=== PATIENT | male | born 1995 | race Caucasian/White ===

== ENCOUNTER 2018-10-09 07:16 | Inpatient (IN) | payer OTHER ==
[2018-10-09] VITALS (16 sets, daily range): BP systolic 105–134; BP diastolic 59–76
[~2018-10-09] VITALS: Ht 177.8 cm; Wt 72.1 kg
[~2018-10-09 07:16] MED LIST: CIPRO500 MG PO; HUMALOG100 UNIT/2 SQ; HYDROCODONE-AP1 EAC6 PO; NORCO 5-325 TA1 EACH PO; ZOFRAN ODT4 MG PO; ZOFRAN ODT4 MG SUBLING
[2018-10-09 07:39] LABS: BE -11.9 mmol/L (-2 to +3); PCO2 VENOUS 30.7 mmHg (41.0-51.0); PO2 VENOUS 60.9 mmHg (35.0-45.0)
[2018-10-09 07:46] LABS: ABSOLUTE BASOPHILS 0.1 thou/uL (0.0-0.2); ABSOLUTE LYMPHOCYTES 1.9 thou/uL (0.8-5.3); ABSOLUTE MONOCYTES 0.5 thou/uL (0.0-1.2); ABSOLUTE NEUTROPHILS 13.6 thou/uL (1.6-8.1); BASOPHILS 0.4 %; EOSINOPHILS 0.1 %; HEMOGLOBIN 15.6 gm/dL (14.0-18.0); LYMPHOCYTES 12.1 %; MCH 28.1 pg (26.0-34.0); MCHC 31.9 g/dL (28.0-37.0); MCV 88.2 fL (80.0-100.0); MONOCYTES 2.9 %; MPV 9.3 fl. (7.2-11.1); NUCLEATED RBCS 0 /100WBC; PLATELET COUNT* 387 thou/uL (150-400); POLYS 84.5 %; RBC 5.55 mil/uL (4.50-6.00); RDW-CV 14.2 % (10.5-14.5); WBC 16.1 thou/uL (4.0-11.0)
[2018-10-09 07:53] LABS: CALCIUM 9.6 mg/dL (8.5-10.1); CREATININE 1.4 mg/dL (0.6-1.3); POTASSIUM 4.3 mmol/L (3.5-5.1)
[2018-10-09 07:55] LABS: ALBUMIN 4.7 g/dL (3.4-5.0); TOTAL BILIRUBIN 1.1 mg/dL (<0.1-1.0); TOTAL PROTEIN 8.3 g/dL (6.4-8.2)
[2018-10-09 08:58] LABS: URINE BILIRUBIN NEGATIVE (Negative); URINE BLOOD NEGATIVE (Negative); URINE CLARITY CLEAR; URINE COLOR YELLOW; URINE GLUCOSE-RANDOM 2+ (Negative); URINE KETONES 2+ (Negative); URINE LEUKOCYTES-REFLEX NEGATIVE (Negative); URINE NITRITE-REFLEX NEGATIVE (Negative); URINE PROTEIN NEGATIVE (Negative); URINE UROBILINOGEN 0.2 E.U./dl (0.2-1.0)
[2018-10-09 10:19] LABS: ALBUMIN 4.7 g/dL (3.4-5.0); CALCIUM 9.9 mg/dL (8.5-10.1); CREATININE 1.4 mg/dL (0.6-1.3); POTASSIUM 4.2 mmol/L (3.5-5.1)
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
[2018-10-09 13:59] LABS: ALBUMIN 3.8 g/dL (3.4-5.0); CALCIUM 8.4 mg/dL (8.5-10.1); PHOSPHORUS* 3.9 mg/dL (2.5-4.9); POTASSIUM 5.1 mmol/L (3.5-5.1)
[2018-10-09 17:43] LABS: ALBUMIN 3.6 g/dL (3.4-5.0); CALCIUM 8.6 mg/dL (8.5-10.1); CREATININE 0.9 mg/dL (0.6-1.3); MAGNESIUM 2.1 mg/dL (1.8-2.4); PHOSPHORUS* 3.9 mg/dL (2.5-4.9); POTASSIUM 4.3 mmol/L (3.5-5.1)
--- NOTE | 2018-10-09 18:00 | NUR ---
PT REPORTS FEELING BETTER. BLOOD GLUCOSE LEVELS CHECKED Q 1 HOUR. VSS. AFEBRILE. PT VOIDING PER URINAL. PT TOLERATING LIQUID DIET.
[2018-10-09 21:39] LABS: ALBUMIN 3.3 g/dL (3.4-5.0); CALCIUM 8.2 mg/dL (8.5-10.1); CREATININE 0.8 mg/dL (0.6-1.3); MAGNESIUM 1.7 mg/dL (1.8-2.4); POTASSIUM 3.8 mmol/L (3.5-5.1)
[2018-10-10] VITALS (15 sets, daily range): BP systolic 78–120; BP diastolic 36–69
[2018-10-10 03:23] LABS: ABSOLUTE BASOPHILS 0.1 thou/uL (0.0-0.2); ABSOLUTE EOSINOPHILS 0.1 thou/uL (0.0-0.7); ABSOLUTE LYMPHOCYTES 2.6 thou/uL (0.8-5.3); ABSOLUTE MONOCYTES 1.5 thou/uL (0.0-1.2); ABSOLUTE NEUTROPHILS 10.4 thou/uL (1.6-8.1); BASOPHILS 0.4 %; EOSINOPHILS 0.9 %; LYMPHOCYTES 17.5 %; MCH 27.7 pg (26.0-34.0); MCHC 32.7 g/dL (28.0-37.0); MCV 84.6 fL (80.0-100.0); MONOCYTES 10.1 %; MPV 8.6 fl. (7.2-11.1); NUCLEATED RBCS 0 /100WBC; PLATELET COUNT* 324 thou/uL (150-400); POLYS 71.1 %; RBC 4.73 mil/uL (4.50-6.00); WBC 14.7 thou/uL (4.0-11.0)
[2018-10-10 03:26] LABS: HEMOGLOBIN 13.1 gm/dL (14.0-18.0)
[2018-10-10 03:30] LABS: CALCIUM 8.1 mg/dL (8.5-10.1); CREATININE 0.8 mg/dL (0.6-1.3); PHOSPHORUS* 2.8 mg/dL (2.5-4.9); POTASSIUM 3.9 mmol/L (3.5-5.1); TOTAL BILIRUBIN 0.5 mg/dL (<0.1-1.0); TOTAL PROTEIN 5.7 g/dL (6.4-8.2)
--- NOTE | 2018-10-10 05:36 | NUR ---
PT. PROGRESSING TOWARDS GOALS. SLEPT WELL. DIET ADVANCED TO CARB CONTROL. REMAINS ON ROOM AIR. INSULIN GTT REMAINS INFUSING AT 2 UNITS/HR. BLOOD GLUCOSE <200. URINAL TO VOID, ADEQUATE URINE OUTPUT. URINE SAMPLE TO BE OBTAINED FOR MORNING UA. IVF INFUSING, 1 BAG KCL 20MEQ INFUSING. CALL LIGHT IN REACH, WILL CONTINUE TO MONITOR.
--- NOTE | 2018-10-10 08:38 | NUR ---
[address] DUFFY HERE TO SEE PATIENT. INSULIN DRIP AND IVF STOPPED PER ORDER. SEE DOCUMENTED ASSESSMENT.
[2018-10-10 08:49] LABS: URINE BILIRUBIN NEGATIVE (Negative); URINE BLOOD NEGATIVE (Negative); URINE CLARITY CLEAR; URINE COLOR YELLOW; URINE GLUCOSE-RANDOM 3+ (Negative); URINE KETONES 1+ (Negative); URINE LEUKOCYTES NEGATIVE (Negative); URINE NITRITE NEGATIVE (Negative); URINE PROTEIN NEGATIVE (Negative); URINE UROBILINOGEN 0.2 E.U./dl (0.2-1.0)
[2018-10-10 11:16] LABS: CALCIUM 8.4 mg/dL (8.5-10.1); CREATININE 0.8 mg/dL (0.6-1.3)
--- NOTE | 2018-10-10 13:47 | NUR ---
DISCHARGE EDUCATION COMPLETED. IV'S REMOVED. DISCHARGED AMBULATORY
--- NOTE | 2018-10-11 13:27 | EKG ---
[place] [address] ELECTROCARDIOGRAM REPORT Name: EMELIALUCIANTYE Room: [address] M.R.#: [id number] Admission: 10/09/18 Attend Phys: Shanda Lundberg MD Discharge: 10/10/18 Date of : 89 Report #: [id number] THIS REPORT FOR: //name// [facility] ED Test Date: 2018-10-09 Test Time: 07:34:27 Pat Name: TYE ZAMUDIO Department: Room: 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: : 1995 Requested By: Rosendo Matias Order Number: [id number] : Willy Sanchez Measurements Intervals [place] Rate: 122 P: 72 [place]: 150 QRS: 70 QRSD: 93 T: 56 QT: 303 QTc: 432 Interpretive Statements Sinus tachycardia Consider right atrial enlargement RSR' in V1 or V2, probably normal variant No previous ECG available for comparison Electronically Signed On 10-11-2018 13:27:23 CDT by Willy Sanchez [email or web address] <ELECTRONICALLY SIGNED> By: Willy Sanchez MD, [facility] 10/11/18 1327 0734 0734 Willy Sanchez MD, [facility] /EPI
== END 2018-10-10 13:45 | disposition home or self-care (01) | DRG 919 ==
LOC: M.ERS 07:16 → M.TBA-ER 08:11 → M.ICU 10:13
PROVIDERS: Emergency Medicine Emergency Medical Services; ADMIT Internal Medicine
DX: T85.898A Other specified complication of other internal prosthetic devices, implants and grafts, initial encounter (principal); E10.10 Type 1 diabetes mellitus with ketoacidosis without coma; E86.0 Dehydration; Y83.8 Other surgical procedures as the cause of abnormal reaction of the patient, or of later complication, without mention of misadventure at the time of the procedure; Z79.4 Long term (current) use of insulin; Z79.899 Other long term (current) drug therapy; Z88.1 Allergy status to other antibiotic agents; Y92.89 Other specified places as the place of occurrence of the external cause